=== PATIENT | female | born 1965 | race Caucasian/White ===

== ENCOUNTER 2018-12-11 15:55 | Observation (INO) ==
--- NOTE | 2018-12-11 16:15 | Emergency Department Note ---
Disposition Clinical Impression: Acute exacerbation of chronic obstructive airways disease Disposition: Admitted As Inpatient Condition: Fair Referrals: Naif Barraza MD [Primary Care Provider] - SOB HPI - General Chief Complaint: ED Shortness of Breath/Dyspnea Stated Complaint: SHortness of breath Time Seen by Provider: 12/11/18 16:05 Source: patient Limitations: no limitations Nursing Notes Reviewed: Yes Vital Signs Reviewed: Yes - History of Present Illness 52 yo female presents from urgent care with a chief complaint shortness of breath. She has a past medical history of anxiety and chronic pain. She is currently being weaned off her home Ativan from 3 times a day to 2 times a day. Since then she has been feeling more short of breath. Over the last 4 days she has noticed increased coughing and shortness of breath which has really worsened since yesterday. She denies any previous diagnosis of COPD and does not take any inhalers at home. She denies fevers, chest pain, nausea, vomiting. At the urgent care when she walked around she had low oxygen sats of 88% and he referred her here for a chest x-ray and further workup. - Related Data Home Medications Medication Instructions Recorded Confirmed Carvedilol [Coreg] 25 mg PO BID 06/07/16 12/11/18 Hydrochlorothiazide [Microzide] 25 mg PO DAILY 06/07/16 12/11/18 LORazepam [Ativan] 1 mg PO TID 06/07/16 12/11/18 Nitroglycerin [Nitrostat] 0.4 mg SL Q5-6MIN PRN 06/07/16 12/11/18 Omeprazole [PriLOSEC] 40 mg PO DAILY 06/07/16 12/11/18 Pravastatin Sodium [Pravachol] 40 mg PO HS 06/07/16 12/11/18 Sertraline [Zoloft] 200 mg PO DAILY 06/07/16 12/11/18 Tizanidine HCl [Zanaflex] 4 mg PO TID PRN 06/07/16 12/11/18 TraZODone 100 mg PO HS 06/07/16 12/11/18 Albuterol Sulfate [Ventolin Hfa] 18 gm IH PRN PRN 07/01/17 12/11/18 Ascorbic Acid [Vitamin C] 1,000 mg PO DAILY 07/01/17 12/11/18 Gluc/Rafita-MSM#2/C/D3/Juno/Born 1 each PO DAILY 07/01/17 12/11/18 [Svgzqbacat-Smwwshzkodk-KML Tab] Lipase/Protease/Amylase [Daly Spence 1 cap PO DAILY 07/01/17 12/11/18 24,000 Units Capsule] Lovastatin [Mevacor] 40 mg PO DAILY 07/01/17 12/11/18 BuPROPion XL (24 HR) [Wellbutrin 150 mg PO DAILY 01/30/18 12/11/18 XL] Previous Rx's Medication Instructions Recorded Diclofenac Sodium [Voltaren] 50 mg PO BID #30 tablet. 07/01/17 Allergies Allergy/AdvReac Type Severity Reaction Status Date / Time codeine Allergy Rash Verified 12/11/18 10:43 sulfacetamide Allergy Rash Verified 12/11/18 10:43 [From Sulfamide] steroids AdvReac Vomiting Uncoded 12/11/18 10:43 All systems ED: reviewed and negative except as stated. Review of Systems: As Per HPI Constitutional: Denies: fever, chills, weakness ENT ED: Reports: congestion Cardiovascular: Reports: dyspnea on exertion. Denies: chest pain, palpitations Respiratory: Reports: cough, dyspnea, wheezes Gastrointestinal: Denies: abdominal pain, nausea, vomiting Genitourinary: Denies: dysuria Musculoskeletal: Reports: back pain. Denies: neck pain Neurological: Reports: weakness. Denies: headache Endocrine: Reports: fatigue Past Medical History - Past Medical History Attestation: Yes The following information was validated with the patient. 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 Absent: tenderness, lymphadenopathy - Chest Chest inspection: Present: normal inspection, symmetric chest wall rise. Absent: tenderness, rash - Respiratory Respiratory exam: Present: wheezes - Cardiovascular Cardiovascular exam: Present: regular rate, normal rhythm - Abdominal Exam Abdominal exam: Present: soft, Non-Tender. Absent: distention, guarding, rebound, rigidity - Extremities Exam Extremities exam: Present: normal inspection. Absent: pedal edema - Neurological Exam Neurological exam: Present: alert, oriented X3 - Psychiatric Psychiatric exam: Present: normal affect - Skin Skin exam: Present: warm, dry, intact Course Vital Signs Temperature 97.9 F 12/11/18 15:57 Pulse Rate 101 12/11/18 15:57 Respiratory Rate 22 12/11/18 15:57 Blood Pressure 136/87 12/11/18 15:57 O2 Sat by Pulse Oximetry 93 12/11/18 15:57 Temperature 97.9 F 12/11/18 15:57 Pulse Rate 93 12/11/18 18:03 Respiratory Rate 20 12/11/18 18:03 Blood Pressure 124/78 12/11/18 18:03 O2 Sat by Pulse Oximetry 94 12/11/18 18:03 Oxygen Delivery Oxygen Delivery Room Air Shortness of Breath/Dyspnea - MDM Narrative Medical decision making narrative: This patient presents with signs and symptoms concerning for COPD exacerbation. We will order her breathing treatments and IV steroids as well as medication for her nausea. We will also give her some IV fluids and do a chest x-ray and draw some screening labs. 1800 - lab work is concerning and chest x-ray shows no acute cardiopulmonary process. Potassium is low and we will supplement here in the ED. She is feeling better after the breathing treatments but still has oxygen sats in the low to mid 90s. We will admit her for COPD exacerbation and continued breathing treatment. Dr. Roman accepts. - Medical Records Medical records reviewed: Yes I reviewed the patient's medical records. - Lab Data Lab results reviewed: Yes I reviewed the patient's lab results. Result diagrams: 12/11/18 16:57 12/11/18 16:57 Lab Results 12/11/18 12/11/18 12/11/18 Range/Units 16:57 16:57 16:57 WBC 8.7 (4.3-11.1) K/mcL RBC 3.95 (3.82-4.97) M/mcL Hgb 12.9 (11.5-15.4) g/dL Hct 38.9 (35.3-44.9) % MCV 98.5 (83.0-100.0) fL MCH 32.7 (28.0-33.3) pg MCHC 33.2 (31.6-35.5) g/dL RDW 11.9 (11.5-14.5) % Plt Count 260 (140-400) K/mcL MPV 10.1 (9.4-12.4) fL Immature Gran % 0.2 (0-4) % Seg Neutrophils % 56.7 % Lymphocytes % 36.8 % Monocytes % 4.4 % Eosinophils % 1.4 % Basophils % 0.5 % Neutrophils # 4.9 (1.6-8.9) K/mcL Lymphocytes # 3.2 (0.6-4.6) K/mcL Monocytes # 0.4 (0.0-1.3) K/mcL Eosinophils # 0.1 (0.0-0.6) K/mcL Basophils # 0.0 (0.0-0.2) K/mcL Sodium 138 (136-145) mEq/L Potassium 3.2 L (3.5-5.1) mEq/L Chloride 102 (98-107) mEq/L Carbon Dioxide 29 (23-29) mEq/L BUN 12 (6-20) mg/dL Creatinine 0.69 (0.60-1.20) mg/dL Est GFR ( Amer) > 60 (> 60) Est GFR (Non-Af Amer) > 60 (> 60) BUN/Creatinine Ratio 17 (6-26) Glucose 141 H (70-105) mg/dL Calculated Osmolality 288 (280-300) Lactic Acid 1.1 (0.5-2.2) mmol/L Calcium 9.9 (8.6-10.3) mg/dL Troponin I < 0.03 (< 0.04) ng/mL B-Natriuretic Peptide (Less than 100) pg/mL 12/11/18 Range/Units 16:57 WBC (4.3-11.1) K/mcL RBC (3.82-4.97) M/mcL Hgb (11.5-15.4) g/dL Hct (35.3-44.9) % MCV (83.0-100.0) fL MCH (28.0-33.3) pg MCHC (31.6-35.5) g/dL RDW (11.5-14.5) % Plt Count (140-400) K/mcL MPV (9.4-12.4) fL Immature Gran % (0-4) % Seg Neutrophils % % Lymphocytes % % Monocytes % % Eosinophils % % Basophils % % Neutrophils # (1.6-8.9) K/mcL Lymphocytes # (0.6-4.6) K/mcL Monocytes # (0.0-1.3) K/mcL Eosinophils # (0.0-0.6) K/mcL Basophils # (0.0-0.2) K/mcL Sodium (136-145) mEq/L Potassium (3.5-5.1) mEq/L Chloride (98-107) mEq/L Carbon Dioxide (23-29) mEq/L BUN (6-20) mg/dL Creatinine (0.60-1.20) mg/dL Est GFR ( Amer) (> 60) Est GFR (Non-Af Amer) (> 60) BUN/Creatinine Ratio (6-26) Glucose (70-105) mg/dL Calculated Osmolality (280-300) Lactic Acid (0.5-2.2) mmol/L Calcium (8.6-10.3) mg/dL Troponin I (< 0.04) ng/mL B-Natriuretic Peptide 32 (Less than 100) pg/mL - Radiology Data Radiology results reviewed: Yes I reviewed the patient's radiology results.
[2018-12-11] MEDS ORDERED: Ipratropium/Albuterol Neb 3 ML IH ONE (16:44)
[2018-12-11] MEDS ORDERED: Ondansetron ODT 4 MG TAB.RAPDIS SL ONE (16:52)
[2018-12-11] MEDS ORDERED: Acetaminophen 325 MG TABLET PO ONE (16:52)
[2018-12-11] MEDS ORDERED: methylPREDNISolone 125 MG/2 ML VIAL IVP ONE (16:52)
--- NOTE | 2018-12-11 17:04 | Emergency Department Note ---
Disposition Clinical Impression: Acute exacerbation of chronic obstructive airways disease Disposition: Admitted As Inpatient Condition: Fair Referrals: Naif Barraza MD [Primary Care Provider] - General Adult HPI - General Chief complaint: ED Shortness of Breath/Dyspnea Stated complaint: SHortness of breath Time Seen by Provider: 12/11/18 16:05 Source: patient Limitations: no limitations - History of Present Illness Pain Scale: 0 - Related Data Home Medications Medication Instructions Recorded Confirmed Carvedilol [Coreg] 25 mg PO BID 06/07/16 12/11/18 Hydrochlorothiazide [Microzide] 25 mg PO DAILY 06/07/16 12/11/18 LORazepam [Ativan] 1 mg PO TID 06/07/16 12/11/18 Nitroglycerin [Nitrostat] 0.4 mg SL Q5-6MIN PRN 06/07/16 12/11/18 Omeprazole [PriLOSEC] 40 mg PO DAILY 06/07/16 12/11/18 Pravastatin Sodium [Pravachol] 40 mg PO HS 06/07/16 12/11/18 Sertraline [Zoloft] 200 mg PO DAILY 06/07/16 12/11/18 Tizanidine HCl [Zanaflex] 4 mg PO TID PRN 06/07/16 12/11/18 TraZODone 100 mg PO HS 06/07/16 12/11/18 Albuterol Sulfate [Ventolin Hfa] 18 gm IH PRN PRN 07/01/17 12/11/18 Ascorbic Acid [Vitamin C] 1,000 mg PO DAILY 07/01/17 12/11/18 Gluc/Rafita-MSM#2/C/D3/Juno/Born 1 each PO DAILY 07/01/17 12/11/18 [Rghuncvlkh-Ykkoneiiuva-ALN Tab] Lipase/Protease/Amylase [Crelemuel Dr 1 cap PO DAILY 07/01/17 12/11/18 24,000 Units Capsule] Lovastatin [Mevacor] 40 mg PO DAILY 07/01/17 12/11/18 BuPROPion XL (24 HR) [Wellbutrin 150 mg PO DAILY 01/30/18 12/11/18 XL] Previous Rx's Medication Instructions Recorded Diclofenac Sodium [Voltaren] 50 mg PO BID #30 tablet. 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 - Social History Smoking Status: Current every day smoker Smokeless Tobacco Status: No Alcohol use: Reports: none Drug use: Reports: none Physical Exam - General Limitations: no limitations General appearance: alert, in no apparent distress Course Vital Signs Temperature 97.9 F 12/11/18 15:57 Pulse Rate 101 12/11/18 15:57 Respiratory Rate 22 12/11/18 15:57 Blood Pressure 136/87 12/11/18 15:57 O2 Sat by Pulse Oximetry 93 12/11/18 15:57 Temperature 97.9 F 12/11/18 15:57 Pulse Rate 93 12/11/18 18:03 Respiratory Rate 20 12/11/18 18:03 Blood Pressure 124/78 12/11/18 18:03 O2 Sat by Pulse Oximetry 94 12/11/18 18:03 Oxygen Delivery Oxygen Delivery Room Air Medical Decision Making - Lab Data Result diagrams: 12/11/18 16:57 12/11/18 16:57 Lab Results 12/11/18 12/11/18 12/11/18 Range/Units 16:57 16:57 16:57 WBC 8.7 (4.3-11.1) K/mcL RBC 3.95 (3.82-4.97) M/mcL Hgb 12.9 (11.5-15.4) g/dL Hct 38.9 (35.3-44.9) % MCV 98.5 (83.0-100.0) fL MCH 32.7 (28.0-33.3) pg MCHC 33.2 (31.6-35.5) g/dL RDW 11.9 (11.5-14.5) % Plt Count 260 (140-400) K/mcL MPV 10.1 (9.4-12.4) fL Immature Gran % 0.2 (0-4) % Seg Neutrophils % 56.7 % Lymphocytes % 36.8 % Monocytes % 4.4 % Eosinophils % 1.4 % Basophils % 0.5 % Neutrophils # 4.9 (1.6-8.9) K/mcL Lymphocytes # 3.2 (0.6-4.6) K/mcL Monocytes # 0.4 (0.0-1.3) K/mcL Eosinophils # 0.1 (0.0-0.6) K/mcL Basophils # 0.0 (0.0-0.2) K/mcL Sodium 138 (136-145) mEq/L Potassium 3.2 L (3.5-5.1) mEq/L Chloride 102 (98-107) mEq/L Carbon Dioxide 29 (23-29) mEq/L BUN 12 (6-20) mg/dL Creatinine 0.69 (0.60-1.20) mg/dL Est GFR ( Amer) > 60 (> 60) Est GFR (Non-Af Amer) > 60 (> 60) BUN/Creatinine Ratio 17 (6-26) Glucose 141 H (70-105) mg/dL Calculated Osmolality 288 (280-300) Lactic Acid 1.1 (0.5-2.2) mmol/L Calcium 9.9 (8.6-10.3) mg/dL Troponin I < 0.03 (< 0.04) ng/mL B-Natriuretic Peptide (Less than 100) pg/mL 12/11/18 Range/Units 16:57 WBC (4.3-11.1) K/mcL RBC (3.82-4.97) M/mcL Hgb (11.5-15.4) g/dL Hct (35.3-44.9) % MCV (83.0-100.0) fL MCH (28.0-33.3) pg MCHC (31.6-35.5) g/dL RDW (11.5-14.5) % Plt Count (140-400) K/mcL MPV (9.4-12.4) fL Immature Gran % (0-4) % Seg Neutrophils % % Lymphocytes % % Monocytes % % Eosinophils % % Basophils % % Neutrophils # (1.6-8.9) K/mcL Lymphocytes # (0.6-4.6) K/mcL Monocytes # (0.0-1.3) K/mcL Eosinophils # (0.0-0.6) K/mcL Basophils # (0.0-0.2) K/mcL Sodium (136-145) mEq/L Potassium (3.5-5.1) mEq/L Chloride (98-107) mEq/L Carbon Dioxide (23-29) mEq/L BUN (6-20) mg/dL Creatinine (0.60-1.20) mg/dL Est GFR ( Amer) (> 60) Est GFR (Non-Af Amer) (> 60) BUN/Creatinine Ratio (6-26) Glucose (70-105) mg/dL Calculated Osmolality (280-300) Lactic Acid (0.5-2.2) mmol/L Calcium (8.6-10.3) mg/dL Troponin I (< 0.04) ng/mL B-Natriuretic Peptide 32 (Less than 100) pg/mL Attestation Statement - Attestation Attestation: I examined this patient and my medical decision-making was reviewed with the Resident Physician. I agree with the documented findings, disposition and treatment plan as described except to the extent set forth below. Patient to the emergency department difficulty in breathing. Wheezing. Sent from urgent care because she was hypoxic upon ambulation 80%. On exam she is mildly tachypneic. Mildly tachycardic. Likely because of her dyspnea. She has diffuse expiratory wheezing. Plan. Nebs and steroids. She will his steroids as an allergy, but is a side effect of vomiting. We will give her some Zofran with the Solu-Medrol. Patient will be admitted. Chest X-Ray 12/11/18 16:14 IMPRESSION: No acute process. D/ / Juan Ortiz MD / Juan Ortiz MD Interpreting Provider: Juan Ortiz MD
[2018-12-11 17:10] LABS: Basophils % 0.5 %; Eosinophils # 0.1 K/mcL (0.0-0.6); Eosinophils % 1.4 %; Hematocrit 38.9 % (35.3-44.9); Hemoglobin 12.9 g/dL (11.5-15.4); Immature Granulocytes % 0.2 % (0-4); Lymphocytes # 3.2 K/mcL (0.6-4.6); Lymphocytes % 36.8 %; Mean Corpuscular HGB Conc 33.2 g/dL (31.6-35.5); Mean Corpuscular Hemoglobin 32.7 pg (28.0-33.3); Mean Corpuscular Volume 98.5 fL (83.0-100.0); Mean Platelet Volume 10.1 fL (9.4-12.4); Monocytes # 0.4 K/mcL (0.0-1.3); Monocytes % 4.4 %; Neutrophils # 4.9 K/mcL (1.6-8.9); Platelet Count 260 K/mcL (140-400); Red Blood Count 3.95 M/mcL (3.82-4.97); Red Cell Distribution Width 11.9 % (11.5-14.5); Segmented Neutrophils % 56.7 %
[2018-12-11 17:33] LABS: Troponin I < 0.03 ng/mL (< 0.04)
[2018-12-11 17:34] LABS: BUN/Creatinine Ratio 17 (6-26); Blood Urea Nitrogen 12 mg/dL (6-20); Calcium 9.9 mg/dL (8.6-10.3); Carbon Dioxide 29 mEq/L (23-29); Chloride 102 mEq/L (98-107); Glucose 141 mg/dL (70-105); Osmolality,Calculated 288 (280-300); Potassium 3.2 mEq/L (3.5-5.1); Sodium 138 mEq/L (136-145); eGFR For Non-African Americans > 60 (> 60)
[2018-12-11] MEDS ORDERED: Naloxone 0.4 MG/ML INJ IVP PRN (17:58)
[2018-12-11] MEDS ORDERED: Albuterol 2.5 MG/3 ML NEBULIZER IH PRN (18:00)
[2018-12-11] MEDS ORDERED: Azithromycin 250 MG TABLET PO SCH (18:00)
--- NOTE | 2018-12-11 18:02 | Internal Med History&Physical ---
Date of Encounter: 12/11/18 Time of Encounter: 18:17 Internal Medicine - H&P: HPI Chief complaint: Shortness of breath Admitted From: Home Plans for Post Hospital Care: Home History of present illness: Ms. Simons is a 52 year old female with PMH of HTN, anxiety, depression, GERD, tobacco abuse who presented to an urgent care with complains of SOB and cough . She denies fever or chills. She denies sick contacts, chest pain, orthpnea. she denies rhinorrhea, myalgias, sore throat, calf tenderness, leg swelling, pleuris y She denies GI or symptoms, she denies any neurologic symptoms She was given duoneb and in the urgent care was found to desat to 80% during ambulation, hence referred to the ER On eval, she is not in distress, O2 sat is 95-98% on room air Labs are unremarkable save for hypokalemia She will be placed on observation for COPDE She is full code Past Med Surg Social Fam HX - Past Medical History Medical history: arthritis, cardiomyopathy, CHF, COPD, GERD, GI bleed, hyperlipidemia, hypertension, other Psychiatric history: anxiety, depression, PTSD - Past Surgical History Surgical History: other (Diagnostic colonoscopy) Additional surgical history: heart cath x 3 - Social History Smoking Status: Current every day smoker Smokeless Tobacco Status: No Alcohol use: none Drug use: none Internal Medicine - H&P: Meds Carvedilol [Coreg] 25 mg PO BID 06/07/16 [History] Hydrochlorothiazide [Microzide] 25 mg PO DAILY 06/07/16 [History] LORazepam [Ativan] 1 mg PO TID 06/07/16 [History] Nitroglycerin [Nitrostat] 0.4 mg SL Q5-6MIN PRN 06/07/16 [History] Omeprazole [PriLOSEC] 40 mg PO DAILY 06/07/16 [History] Pravastatin Sodium [Pravachol] 40 mg PO HS 06/07/16 [History] Sertraline [Zoloft] 200 mg PO DAILY 06/07/16 [History] Tizanidine HCl [Zanaflex] 4 mg PO TID PRN 06/07/16 [History] TraZODone 100 mg PO HS 06/07/16 [History] Albuterol Sulfate [Ventolin Hfa] 18 gm IH PRN PRN 07/01/17 [History] Ascorbic Acid [Vitamin C] 1,000 mg PO DAILY 07/01/17 [History] Diclofenac Sodium [Voltaren] 50 mg PO BID #30 tablet. 07/01/17 [Rx] Gluc/Rafita-MSM#2/C/D3/Juno/Born [Qhpurfgweu-Ehtdebxagxt-ZWQ Tab] 1 each PO DAILY 07/01/17 [History] Lipase/Protease/Amylase [Daly Spence 24,000 Units Capsule] 1 cap PO DAILY 07/01/17 [History] Lovastatin [Mevacor] 40 mg PO DAILY 07/01/17 [History] BuPROPion XL (24 HR) [Wellbutrin XL] 150 mg PO DAILY 01/30/18 [History] Allergy/AdvReac Type Severity Reaction Status Date / Time codeine Allergy Rash Verified 12/11/18 10:43 sulfacetamide Allergy Rash Verified 12/11/18 10:43 [From Sulfamide] steroids AdvReac Vomiting Uncoded 12/11/18 10:43 All Systems PM: A 10-system review of systems was performed and is negative for pertinent findings except as documented above in the HPI. - Constitutional Constitutional: no chills, no fever(s), no night sweats - EENT Eyes: no change in vision, no discharge, no pain, no photophobia Ears: no ear discharge, no ear pain, no tinnitus Nose, mouth and throat: no dysphagia, no nasal discharge, no neck pain, no sore throat - Cardiovascular Cardiovascular ROS IM: no chest pain, no diaphoresis, no dyspnea, no lightheadedness, no palpitations, no syncope - Respiratory Respiratory: as per HPI, cough, dyspnea, wheezing - Gastrointestinal Gastrointestinal: no abdominal pain, no diarrhea, no hematemesis, no hematochezia, no melena, no nausea, no vomiting - Genitourinary Genitourinary: no change in urinary stream, no dysuria, no flank pain, no hematuria - Musculoskeletal Musculoskeletal ROS IM: no numbness, no tingling - Integumentary Integumentary IM: no rash, no unusual bruising - Neurological Neurological ROS: no confusion, no convulsions, no focal weakness, no numbness, no tingling, no tremor(s) - Hematologic/Lymphatic Hematologic/Lymphatic: no easy bruising - Constitutional Vitals: Temp Pulse Resp BP Pulse Ox 97.9 F 92 18 124/73 94 12/11/18 15:57 12/11/18 16:32 12/11/18 17:05 12/11/18 16:32 12/11/18 17:54 General appearance: Present: A&O X 3, pleasant, no acute distress Exam: see below - Head Head exam: Present: atraumatic, normocephalic - Eye Eye exam: Present: PERRL, conjuntiva pink, sclera anicteric Pupils: Present: PERRL - Neck Neck exam general surgery: Present: supple, trachea midline. Absent: lymphadenopathy - Respiratory Respiratory exam: Present: wheezes (diffuse bilateral wheezing on auscultation). Absent: accessory muscle use, rales, rhonchi - Cardiovascular Cardiovascular exam: Present: RRR, +S1, +S2. Absent: diastolic murmur, gallop, rubs, systolic murmur - GI/Abdominal GI/Abdominal exam: Present: normal bowel sounds, soft, no peritoneal signs. Absent: distended, tenderness - Extremities Exam Extremities exam: Present: warm, radial pulses palpable and symmetrical. Absent: calf tenderness, cyanotic, pedal edema - Neurological Exam Neurological exam: Present: CN II-XII intact, oriented X3, no focal deficits. Absent: pronater drift, facial droop, speech deficit - Skin Skin exam: Present: dry, intact Internal Med - H&P Results - Labs CBC & Chem 7: 12/11/18 16:57 12/11/18 16:57 Labs: Short CBC 12/11/18 Range/Units 16:57 WBC 8.7 (4.3-11.1) K/mcL Hgb 12.9 (11.5-15.4) g/dL Hct 38.9 (35.3-44.9) % Plt Count 260 (140-400) K/mcL Neutrophils # 4.9 (1.6-8.9) K/mcL BMP 12/11/18 16:57 Sodium 138 Potassium 3.2 L Chloride 102 Carbon Dioxide 29 BUN 12 Creatinine 0.69 Glucose 141 H Calcium 9.9 Cardiac Enzymes 12/11/18 Range/Units 16:57 Troponin I < 0.03 (< 0.04) ng/mL - Impressions ITS Impressions Chest X-Ray 12/11/18 16:14 IMPRESSION: No acute process. D/ / Juan Ortiz MD / Juan Ortiz MD Interpreting Provider: Juan Ortiz MD - Assessment and plan (1) COPD with acute exacerbation Current Visit: Yes Status: Acute Assessment and plan: Duonebs q4h BLAYNE Albuterol q2h PRN [id number] po daily Azithromycin 500mg daily Continue O2 as needed PFT as outpatient-to be scheduled prior to d/c Resume home meds when confirmed (2) Hypoxia Current Visit: Yes Status: Acute Assessment and plan: On ambulation O2 walking test prior to discharge (3) Hypokalemia Current Visit: Yes Status: Acute Assessment and plan: replaced po rpt chem a.m - Time Spent With Patient Total time spent is greater than 50% in coordination of care (as documented) at patient's floor/unit and/or counseling patient:
[2018-12-11] MEDS: tiZANidine 4 MG TABLET PO PRN (21:35)
[2018-12-11] MEDS: *HR* Promethazine 25 MG/ML VIAL IVP PRN (21:35)
[2018-12-11] MEDS: Ipratropium/Albuterol Neb 3 ML IH SCH (22:22)
[2018-12-11] MEDS ORDERED: traZODone 50 MG TABLET PO SCH (22:45)
[2018-12-11] MEDS: Nicotine 14 MG PATCH.TD24 TD SCH (22:58)
[2018-12-11] MEDS: *HR* LORazepam 1 MG TABLET PO SCH (22:59)
[2018-12-12] MEDS: traMADol 50 MG TABLET PO PRN ×2 (00:14→07:55)
[2018-12-12] MEDS: Ipratropium/Albuterol Neb 3 ML IH SCH ×2 (04:10→10:10)
[2018-12-12] MEDS ORDERED: Ketorolac 15 MG/ML VIAL IVP ONE (05:01)
[2018-12-12 05:26] LABS: BUN/Creatinine Ratio 22 (6-26); Blood Urea Nitrogen 13 mg/dL (6-20); Calcium 9.9 mg/dL (8.6-10.3); Carbon Dioxide 28 mEq/L (23-29); Chloride 101 mEq/L (98-107); Glucose 158 mg/dL (70-105); Osmolality,Calculated 285 (280-300); Potassium 3.9 mEq/L (3.5-5.1); Sodium 136 mEq/L (136-145); eGFR For Non-African Americans > 60 (> 60)
[2018-12-12] MEDS: tiZANidine 4 MG TABLET PO PRN (07:54)
[2018-12-12] MEDS: Nicotine 14 MG PATCH.TD24 TD SCH (07:54)
[2018-12-12] MEDS: *HR* LORazepam 1 MG TABLET PO SCH ×2 (07:54→13:49)
[2018-12-12] MEDS: *HR* Promethazine 25 MG/ML VIAL IVP PRN (07:54)
[2018-12-12] MEDS ORDERED: predniSONE 20 MG TABLET PO SCH (09:00)
[2018-12-12] MEDS ORDERED: *HR* LORazepam 1 MG TABLET PO SCH (09:00)
[2018-12-12] MEDS ORDERED: hydroCHLOROthiazide 25 MG TABLET PO SCH (09:00)
--- NOTE | 2018-12-12 11:43 | Electrocardiograph Report ---
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
--- NOTE | 2018-12-12 11:43 | Consult Note ---
Date of Encounter: 12/12/18 Time of Encounter: 11:38 Assessment & Recommendation (1) Generalized anxiety disorder Current visit: Yes Status: Acute Assessment & Recommendation: Client seems to be doing fine now that her home meds have been restarted. Would not recommend any changes to her current regimen. She will need a new psychiatrist. Would recommend a consult to dialysis social worker to see if they can assist client with getting set up on an outpatient basis. No need for inpatient hospitalization. History of Present Illness Requesting Physician: Talon Roman Reason for consult: agitation History of present illness: Ms. Simons is a 52 year old female who was admitted medically for SOB. Became agitated last night and psychiatry was consulted. On eval today client is calm and pleasant. Client admits she became agitated last night when she thought she was not getting her mental health medications. According to client she has been on the same regimen for years and it works for her. Recently lost her psychiatrist and the new doctor wanted to change her regimen so client fired her. She is now waiting to be seen at a new location. Client states she still has plenty of her regular meds at home but will need seen soon so she does not run out. Denies SI/HI today. No evidence of psychosis or a thought disorder. Not agitated at any point when speaking with this lead technical writer. States she is feeling fine and does not need anything from mental health provided she gets the medications she normally takes at home. CC: Talon Roman Past Med Surg Social Fam HX - Past Medical History Medical history: arthritis, cardiomyopathy, CHF, COPD, GERD, GI bleed, hyperlipidemia, hypertension, other - Past Psychiatric History Psychiatric history: Reports: anxiety, previous psychiatric hospitalization Family psychiatric history: Yes Family Psychiatric History Details: brothers-schizophrenia Family History of Suicide: Unknown - Past Surgical History Surgical History: other - Social History Smoking Status: Current every day smoker Smokeless Tobacco Status: No Alcohol use: none Drug use: none Medications & Allergies Carvedilol [Coreg] 25 mg PO BID 06/07/16 [History] Hydrochlorothiazide [Microzide] 25 mg PO DAILY 06/07/16 [History] LORazepam [Ativan] 1 mg PO TID 06/07/16 [History] Nitroglycerin [Nitrostat] 0.4 mg SL Q5-6MIN PRN 06/07/16 [History] Omeprazole [PriLOSEC] 40 mg PO DAILY 06/07/16 [History] Pravastatin Sodium [Pravachol] 40 mg PO HS 06/07/16 [History] Sertraline [Zoloft] 200 mg PO DAILY 06/07/16 [History] Tizanidine HCl [Zanaflex] 4 mg PO TID PRN 06/07/16 [History] TraZODone 200 mg PO HS 06/07/16 [History] Albuterol Sulfate [Ventolin Hfa] 18 gm IH PRN PRN 07/01/17 [History] Ascorbic Acid [Vitamin C] 1,000 mg PO DAILY 07/01/17 [History] Gluc/Rafita-MSM#2/C/D3/Juno/Born [Zloltutlwe-Kfbtwrskrra-MMT Tab] 1 each PO DAILY 07/01/17 [History] Lipase/Protease/Amylase [Creon Dr 24,000 Units Capsule] 1 cap PO DAILY 07/01/17 [History] Lovastatin [Mevacor] 40 mg PO DAILY 07/01/17 [History] Allergy/AdvReac Type Severity Reaction Status Date / Time codeine Allergy Rash Verified 12/11/18 10:43 sulfacetamide Allergy Rash Verified 12/11/18 10:43 [From Sulfamide] steroids AdvReac Vomiting Uncoded 12/11/18 10:43 Review of Systems Constitutional: Denies: fever, chills, weakness, weight change Eyes: Denies: eye pain, vision change Ears, Nose, Throat: Denies: ear pain, throat pain, dental pain, hearing loss, congestion Cardiovascular: Denies: chest pain, palpitations, dyspnea on exertion Respiratory: Reports: dyspnea, wheezes Gastrointestinal: Denies: abdominal pain, nausea, vomiting, diarrhea, constipation Genitourinary female: Denies: urgency, dysuria, frequency, abnormal menses, dyspareunia Musculoskeletal: Denies: joint swelling, joint pain Integumentary: Denies: rash, lesions, pruritus Neurological: Denies: headache, weakness, numbness, memory loss Endocrine: Denies: fatigue, heat or cold intolerance Hematologic/Lymphatic: Denies: easy bruising, lymphadenopathy Allergic/Immunologic: Denies: urticaria, itchy eyes Psychiatry Exam - Constitutional Vitals: Temp Pulse Resp BP Pulse Ox 97.7 F 105 16 151/83 96 12/12/18 06:58 01/18/19 06:58 12/12/18 06:58 12/12/18 06:58 12/12/18 06:58 General appearance: obese - Musculoskeletal Gait: normal Station: relaxed Strength & Tone: normal for patient - Psychiatric Patient Orientation: Yes Person, Yes Time, Yes Place Level of alertness: Alert Behavior: calm, cooperative Psychomotor activity: Normal Eye Contact: Maintains Eye Contact Mood Description: Euthymic/stable Affect description: congruent with mood, full range Speech Volume: Normal Speech pattern: normal rate, normal rhythm, normal tone, fluent, spontaneous Language & Vocabulary: consistent with education Thought Process: Linear, Goal Oriented Thought Content: No Suicidal ideation, No Homicidal ideation, No Overt delusions Perceptual Disturbances: No Auditory hallucinations, No Visual hallucinations Attention Span Ability: Capable of Focused Attention Memory Description: Grossly Intact Patient Reliability: Reliable Historian Intelligence Estimate: Below Average Judgment: Fair Insight: Partial Results - Labs Labs: Laboratory Last Values WBC 8.7 K/mcL (4.3-11.1) 12/11/18 16:57 RBC 3.95 M/mcL (3.82-4.97) 12/11/18 16:57 Hgb 12.9 g/dL (11.5-15.4) 12/11/18 16:57 Hct 38.9 % (35.3-44.9) 12/11/18 16:57 MCV 98.5 fL (83.0-100.0) 12/11/18 16:57 MCH 32.7 pg (28.0-33.3) 12/11/18 16:57 MCHC 33.2 g/dL (31.6-35.5) 12/11/18 16:57 RDW 11.9 % (11.5-14.5) 12/11/18 16:57 Plt Count 260 K/mcL (140-400) 12/11/18 16:57 MPV 10.1 fL (9.4-12.4) 12/11/18 16:57 Immature Gran % 0.2 % (0-4) 12/11/18 16:57 Seg Neutrophils % 56.7 % 12/11/18 16:57 Lymphocytes % 36.8 % 12/11/18 16:57 Monocytes % 4.4 % 12/11/18 16:57 Eosinophils % 1.4 % 12/11/18 16:57 Basophils % 0.5 % 12/11/18 16:57 Neutrophils # 4.9 K/mcL (1.6-8.9) 12/11/18 16:57 Lymphocytes # 3.2 K/mcL (0.6-4.6) 12/11/18 16:57 Monocytes # 0.4 K/mcL (0.0-1.3) 12/11/18 16:57 Eosinophils # 0.1 K/mcL (0.0-0.6) 12/11/18 16:57 Basophils # 0.0 K/mcL (0.0-0.2) 12/11/18 16:57 Sodium 136 mEq/L (136-145) 12/12/18 04:43 Potassium 3.9 mEq/L (3.5-5.1) 12/12/18 04:43 Chloride 101 mEq/L (98-107) 12/12/18 04:43 Carbon Dioxide 28 mEq/L (23-29) 12/12/18 04:43 BUN 13 mg/dL (6-20) 12/12/18 04:43 Creatinine 0.60 mg/dL (0.60-1.20) 12/12/18 04:43 Est GFR ( Amer) > 60 (> 60) 12/12/18 04:43 Est GFR (Non-Af Amer) > 60 (> 60) 12/12/18 04:43 BUN/Creatinine Ratio 22 (6-26) 12/12/18 04:43 Glucose 158 mg/dL (70-105) H 12/12/18 04:43 POC Glucose 194 mg/dL (70-99) H 12/12/18 02:13 Calculated Osmolality 285 (280-300) 12/12/18 04:43 Lactic Acid 0.7 mmol/L (0.5-2.2) 12/11/18 19:29 Calcium 9.9 mg/dL (8.6-10.3) 12/12/18 04:43 Troponin I < 0.03 ng/mL (< 0.04) 12/11/18 16:57 B-Natriuretic Peptide 32 pg/mL (Less than 100) 12/11/18 16:57 - Impressions Impressions Chest X-Ray 12/11/18 16:14 IMPRESSION: No acute process. D/ / Juan Ortiz MD / Juan Ortiz MD Interpreting Provider: Juan Ortiz MD Consult Discharge Plan - Plan Referrals: Naif Barraza MD [Primary Care Provider] -
[2018-12-12 11:44] VITALS: BP 146/73
--- NOTE | 2018-12-12 12:07 | Discharge Summary ---
- NOTES TO OUTPATIENT PROVIDER Notes to Outpatient Provider: Follow up with PCP to assess need for continuous need for O2. Follow up with PCP for referral to new psychiatrist Date of Encounter: 12/12/18 Time of Encounter: 08:30 - Discharge Diagnosis (1) COPD with acute exacerbation Priority: Primary Status: Acute (2) Hypoxia Priority: Primary Status: Acute (3) Hypokalemia Priority: Primary Status: Resolved (4) Tobacco abuse Priority: Secondary Status: Chronic Hospital course: Ms. Simons is a 52 year old female with PMH of HTN, anxiety, depression, GERD, tobacco abuse who presented to an urgent care with complains of SOB and cough . She denied fever or chills. She denied sick contacts, chest pain, orthpnea. she denies rhinorrhea, myalgias, sore throat, calf tenderness, leg swelling, pleurisy She denied GI or symptoms, she denied any neurologic symptoms She was given duoneb and in the urgent care was found to desaturated to 80% during ambulation, hence referred to the ER . In the ER, she was treated with more duonebs and steroids and referred for admission Work up was unremarkable, CBC, Chem WNL. She had mild hyperglycemia likely related to use of steroids. BNP was WNL, CXR was clear, EKG was unremarkable At time of evaluation, she was in a clinically stable conditions. She is said to have been agitated and needed a psych eval , psychiatrist did not make any new recommendations She was seen and evaluated at the bedside this morning, reported she has made clinical improvement and would like to be discharged home. She is not tachypneic or tachycardic, she is afebrile, hemodynamically stable. On room air, she is stable but rapidly destaurated after walking for 2mins She is discharged home with oxygen, a nebulizer, nebs, 4 more days of pr ednisone, azithromycin. Other chronic medical conditions are stable We have also scheduled a PFT as outpatient Follow up with PCP and own psychiatrist Verbalized understanding of plan of care 3mins spent on education on tobacco cessation Discharge discussed with: patient, nurse Time spent discussing smoking cessation with patient: 3 to 10 minutes (3 mins spent on tobacco cessation counselling) - Time Spent with Patient Total time spent providing and/or coordinating discharge services: Less than 30 minutes - Discharge Medications Prescriptions: Azithromycin [Zithromax] 500 mg PO QPM 3 Days #6 tablet Ipratropium/Albuterol Neb [Duoneb] 3 ml IH QIDR PRN #15 inhsol PRN Reason: Shortness Of Breath Nebulizer [Aeroeclipse] 1 each 1-2XD PRN #1 each PRN Reason: Shortness Of Breath Nebulizer Accessories [A.i.r.s. Nebulizer] 1 each 1-2XD PRN #1 kit PRN Reason: Shortness Of Breath predniSONE [PredniSONE] 40 mg PO DAILY 4 Days #8 tablet Home Medications: Carvedilol [Coreg] 25 mg PO BID 06/07/16 [History] Hydrochlorothiazide [Microzide] 25 mg PO DAILY 06/07/16 [History] LORazepam [Ativan] 1 mg PO TID 06/07/16 [History] Nitroglycerin [Nitrostat] 0.4 mg SL Q5-6MIN PRN 06/07/16 [History] Omeprazole [PriLOSEC] 40 mg PO DAILY 06/07/16 [History] Pravastatin Sodium [Pravachol] 40 mg PO HS 06/07/16 [History] Sertraline [Zoloft] 200 mg PO DAILY 06/07/16 [History] Tizanidine HCl [Zanaflex] 4 mg PO TID PRN 06/07/16 [History] TraZODone 200 mg PO HS 06/07/16 [History] Albuterol Sulfate [Ventolin Hfa] 18 gm IH PRN PRN 07/01/17 [History] Ascorbic Acid [Vitamin C] 1,000 mg PO DAILY 07/01/17 [History] Gluc/Rafita-MSM#2/C/D3/Juno/Born [Pxiawejklt-Albgxoiclmw-HBX Tab] 1 each PO DAILY 07/01/17 [History] Lipase/Protease/Amylase [Creon Dr 24,000 Units Capsule] 1 cap PO DAILY 07/01/17 [History] Azithromycin [Zithromax] 500 mg PO QPM 3 Days #6 tablet 12/12/18 [Rx] Ipratropium/Albuterol Neb [Duoneb] 3 ml IH QIDR PRN #15 inhsol 12/12/18 [Rx] Nebulizer Accessories [A.i.r.s. Nebulizer] 1 each 1-2XD PRN #1 kit 12/12/18 [Rx] Nebulizer [Aeroeclipse] 1 each MC 1-2XD PRN #1 each 12/12/18 [Rx] predniSONE [PredniSONE] 40 mg PO DAILY 4 Days #8 tablet 12/12/18 [Rx] Allergies/Adverse Reactions: Allergy/AdvReac Type Severity Reaction Status Date / Time codeine Allergy Rash Verified 12/11/18 10:43 sulfacetamide Allergy Rash Verified 12/11/18 10:43 [From Sulfamide] steroids AdvReac Vomiting Uncoded 12/11/18 10:43 Date of admission: 12/11/18 18:01 Primary care physician: Naif Barraza MD Consults: 12/11/18 18:00 Consult to Nurse Navigator [CONS] Routine Comment: 12/11/18 23:44 Consult to Psychiatry [CONS] Routine Consulting Provider: Psychiatry [place] Reason consult: Agitation Other reason and/or additional details: Patient is requesting to see a Psychiatrist. Pt. is agitated and stating that no one is paying attention to her medications. States she has hx of anxiety, depression, and PTSD (no official dx). Was seen at [facility] in [place] and fired her Psychiatrist. Was to be called by [facility] in [place] but has not been contacted. Last psychiatric hospitalization was at [facility] in January 2017 when she threatened to kill herself. States she took handful of her ex-'s nerve medications before (cannot remember when) and slept for two days w/o telling anyone. Denies SI currently. Pt. needs a Psychiatrist. Time Notified: 23:45 Call Completed: Yes Discharging clinician: Nicholas Rivera Anticipated date of discharge: 12/12/18 - Constitutional Vitals: Temp Pulse Resp BP Pulse Ox 98.0 F 89 15 146/73 95 12/12/18 11:30 12/12/18 11:30 12/12/18 11:30 12/12/18 11:30 12/12/18 11:30 General appearance: Present: A&O X 3, pleasant, no acute distress Exam: see below - Head Head exam: Present: atraumatic, normocephalic - Eye Eye exam: Present: PERRL, conjuntiva pink, sclera anicteric Pupils: Present: PERRL - Neck Neck exam general surgery: Present: supple, trachea midline. Absent: lymphadenopathy - Respiratory Respiratory exam: Present: wheezes. Absent: accessory muscle use, rales, rhonchi - Cardiovascular Cardiovascular exam: Present: RRR, +S1, +S2. Absent: diastolic murmur, gallop, rubs, systolic murmur - GI/Abdominal GI/Abdominal exam: Present: normal bowel sounds, soft, no peritoneal signs. Absent: distended, tenderness - Extremities Exam Extremities exam: Present: warm, radial pulses palpable and symmetrical. Absent: calf tenderness, cyanotic, pedal edema - Neurological Exam Neurological exam: Present: CN II-XII intact, oriented X3, no focal deficits. Absent: pronater drift, facial droop, speech deficit - Skin Skin exam: Present: dry, intact - Patient Status Disposition: Home, Self-Care Condition: Fair Functional capacity at discharge: independent ambulation Overall status at discharge: patient is progressing back to baseline - Ambulatory Orders Ambulatory Orders: SP PFT screen Time Frame: 1 Month, Facility: [facility], Location: Cardiopulmonary Svc - Discharge Instructions Follow Up With: Naif Barraza MD [Primary Care Provider] - - Diet and Activity Activity: wear oxygen at all times Diet: low fat, low cholesterol, low salt diet
[2018-12-12] MEDS ORDERED: traZODone 50 MG TABLET PO SCH (21:00)
== END 2018-12-12 15:14 | disposition home or self-care (01) ==
LOC: 3BNU 15:55 → EMEROOARM 15:55 → 3BNU 18:51
PROVIDERS: ADMIT Hospitalist; ATTEND Hospitalist